=== PATIENT | male | born 1955 | race Caucasian/White ===

== ENCOUNTER 2024-02-28 18:18 | Emergency (ER) | payer MEDICARE, OTHER ==
[2024-02-28 19:18] LABS: #Basophils 0.1 thou/uL (0.0-0.2); #Eosinphils 0.2 thou/uL (0.0-0.7); #Lymphocytes 1.3 thou/uL (1.20-3.40); #Monocytes 0.7 thou/uL (0.11-0.59); #Neutrophils 3.3 thou/uL (1.40-6.50); %Basophils 1.5 % (0.0-1.0); %Eosinophils 3.3 % (0.0-10.0); %Lymphocytes 23.9 % (21.0-51.0); %Monocytes 13.2 % (0.0-10.0); %Neutrophils 58.2 % (42.0-75.0); Hematocrit 47.4 % (42.0-52.0); Hemoglobin 15.3 g/dL (14.0-18.0); Mean Corpuscular HGB CONC 32.3 g/dL (32.0-36.0); Mean Platelet Volume 6.7 fL (7.4-10.4); Platelet Count 222 10x3/uL (130-400); RBC Distribution Width 12.8 % (11.5-14.5); Red Blood Cell (RBC) Count 4.79 mill/uL (4.70-6.10); White Blood Cell (WBC) Count 5.6 10x3/uL (4.8-10.8)
[2024-02-28 19:26] LABS: Bilirubin Negative (Negative); Blood, Urine Negative (Negative); Clarity Clear (Clear); Glucose, Urine (Dipstick) Negative (Negative); Ketone, Urine Negative (Negative); Leukocyte Negative (Negative); Nitrite Negative (Negative); Protein, Urine (Dipstick) Negative (Neg-Trace)
[2024-02-28 19:30] LABS: Bacteria/HPF Rare-Few HPF (None Seen); CAUTI Indications for Culture Dysuria,urgency,freq; RBC/HPF 0-3 HPF (0-3); Squamous Epithelial 0-3 HPF (0-3); WBC/HPF None Seen HPF (0-3)
[2024-02-28 19:31] LABS: Mucous/LPF Rare LPF (<2+); Urine Culture Reflex No No
[2024-02-28 19:33] LABS: ALT (SGPT) 98 U/L (8-55); AST (SGOT) 75 U/L (5-34); Albumin 4.8 g/dL (3.4-4.8); Alkaline Phosphatase 80 U/L (40-110); Anion Gap 18 mmol/L (10-20); BUN (Urea Nitrogen) 12 mg/dL (8.4-25.7); Bilirubin, Total 0.5 mg/dL (0.2-1.2); Calc. Creatinine Clearance 0 mL/min (70-130); Calcium 9.8 mg/dL (7.8-10.44); Carbon Dioxide 26 mmol/L (23-31); Chloride 101 mmol/L (98-107); Estimated GFR 81; Globulin 2.8 g/dL (2.4-3.5); Glucose 113 mg/dL (80-115); Potassium 4.1 mmol/L (3.5-5.1); Protein, Total 7.6 g/dL (5.8-8.1); Sodium 141 mmol/L (136-145)
[2024-02-28 19:35] LABS: Troponin I Less than 0.010 ng/mL (< 0.028)
[2024-02-28 19:59] LABS: Alcohol Less than 10.0 mg/dL (Less than 10)
[2024-02-28] MEDS ORDERED: Lisinopril 10 MG TAB ONE (20:32)
== END 2024-02-28 20:45 | disposition home or self-care (01) ==
LOC: MADERS 18:18
DX: I10 Essential (primary) hypertension (principal)
CPT/HCPCS: 36415; 80053; 80307; 81001; 83880; 84443; 84484; 85025; 93005